=== PATIENT | female | born 1995 ===

== ENCOUNTER 2024-02-17 12:03 | Outpatient (CLI) | payer MEDICAID, SELFPAY ==
[2024-02-17 14:24] LABS: Rapid Plasma Reagin Syphilis Nonreactive (Nonreactive)
== END 2024-02-17 12:04 | disposition home or self-care (01) ==
LOC: LAB 12:10
PROVIDERS: PCP Pediatrics; Visit Provider Pediatrics
DX: Z11.3 Encounter for screening for infections with a predominantly sexual mode of transmission (principal)
CPT/HCPCS: 86592